=== PATIENT | female | born 1970 | race Asian ===

== ENCOUNTER → 2018-05-23 | Outpatient (CLI) | payer BC | LOC: MC.RAD 08:20 | DX: Z12.31 Encounter for screening mammogram for malignant neoplasm of breast (principal) ==

== ENCOUNTER → 2021-02-12 | Outpatient (CLI) | payer BC | LOC: MC.RAD 12-30 08:00 | DX: Z12.31 Encounter for screening mammogram for malignant neoplasm of breast (principal) ==

== ENCOUNTER 2021-10-16 13:47 | Outpatient (CLI) | payer BC ==
[~2021-10-16] VITALS: Ht 160 cm; Wt 59.0 kg
[2021-10-16] VITALS (15 sets, daily range): BP systolic 126–164; BP diastolic 70–98; PULSE 70–93; TEMP 98–98.4
--- NOTE | 2021-10-16 15:21 | NUR ---
INFUSION started at 1400, pt developed lightheadedness, chest tightness and nausea shortly after infusion began. pt had received approx 12 ml of infusion. Vital signs were monitored, bp did increase to 160's systonlicinfusion was stopped, and sx gradually improved and resolved over a few minutes. I called rodney hair at approx 1430 to report sx and request guidance how to proceed. I reported sx to Bibiana MARTINEZ, Dr. Shipman's nurse, as Dr. Siegel is not in office today. we are currently waiting for a call back.
[2021-10-16] MEDS ORDERED: COMPLETE MULTI1 TAB PO (16:33)
[2021-10-16] MEDS ORDERED: IRON 27 MG PO (16:34)
[2021-10-16] MEDS ORDERED: NATURE S BLEND PO (16:36)
[2021-10-16] MEDS ORDERED: MAGNESIUM500 MG PO (16:37)
[2021-10-16] MEDS ORDERED: DELSYM30 MG/5 ML PO (16:38)
[2021-10-16] MEDS ORDERED: MUCINEX 60600 MG/TA1 PO (16:39)
[2021-10-16] MEDS ORDERED: ZYRTEC 10MG10 MG PO (16:39)
[2021-10-16] MEDS ORDERED: FLONASEALLERGY NS (16:40)
[2021-10-16] MEDS ORDERED: ZESTORETIC 12.51 TA1 PO (16:41)
[2021-10-16] MEDS ORDERED: CRYSELLE 30 MCG1 TAB PO (16:41)
[2021-10-16] MEDS ORDERED: PROTONIX 40MG T40 MG PO (16:42)
--- NOTE | 2021-10-16 16:42 | NUR ---
TELEPHONE ORDERS WERE RECEIVED FROM DR. CONNER AT APPROX 1535. PER THESE ORDERS PT WAS PREMEDICATED WITH 1000 MG PO TYLENOL AND 50 MG PO BENADRYL AT 1545. INFUSION WAS RESTARTED AT 1621 AT 100 CC/HR. PT TOLERATING WELL SO FAR. I AM MONITORING PT CLOSELY.
--- NOTE | 2021-10-16 18:38 | NUR ---
PT ended up tolerating bam infusion with no problem after premeds and with slower rate. Pt was monitored x 1 hour after infusion was complete, and she was fine. Pt was noted to have slightly higher bp during infusion and for some time after, but prior to her departure, her bp was normalizing to her baseline while here. She was amb with steady gait, no dizziness. pt was able to eat a little snack of crackers adn juice with no problem.. iv was dc'd with cath intact, dressing applied. I recommended to pt consider taking a benadryl at approx 2145, and to seek emergency care for reccurrence of any severe allergic symptoms such as chest tightness, dizziness, sob, difficulty breathing. pt verbalized understanding. amb to exit with steady gait.
== END 2021-10-16 18:42 | disposition home or self-care (01) ==
LOC: EUO 13:47
DX: U07.1 COVID-19 (principal); I10 Essential (primary) hypertension
CPT/HCPCS: M0245

== ENCOUNTER → 2022-09-08 | Outpatient (CLI) | payer BC ==
[~2022-09-08] MED LIST: COMPLETE MULTI1 TAB PO; CRYSELLE 30 MCG1 TAB PO; DELSYM30 MG/5 ML PO; FLONASEALLERGY NS; IRON 27 MG PO; MAGNESIUM500 MG PO; MUCINEX 60600 MG/TA1 PO; NATURE S BLEND PO; PROTONIX 40MG T40 MG PO; ZESTORETIC 12.51 TA1 PO; ZYRTEC 10MG10 MG PO
== END ==
LOC: MC.RAD 11:30
DX: Z12.31 Encounter for screening mammogram for malignant neoplasm of breast (principal)